=== PATIENT | female | born 1960 | race Hispanic/Latino ===

== ENCOUNTER → 2020-07-23 | Outpatient (CLI) | payer BC ==
[~2020-07-23] MED LIST: ATEN-188 PO; ESTR1TAB21 PO; IBUP-2733 PO; LEVO75TA10 PO
== END | disposition home or self-care (01) ==
LOC: RAH 14:00
PROVIDERS: ATTEND Orthopaedic Surgery
DX: S92.351G Displaced fracture of fifth metatarsal bone, right foot, subsequent encounter for fracture with delayed healing (principal); X58.XXXD Exposure to other specified factors, subsequent encounter
CPT/HCPCS: 73700